=== PATIENT | female | born 1950 | race American Indian/Alaskan Native ===

== ENCOUNTER 2019-09-17 08:08 | Observation (INO) | payer MEDICARE ==
[2019-09-17] MEDS ORDERED: NITROGLYCERIN 0.4 MG TAB SUBL SL ONE (08:29)
[2019-09-17] MEDS ORDERED: ASPIRIN 325 MG TAB PO ONE (08:29)
[2019-09-17 08:51] LABS: Basophils # (Auto) 0.1 K/mm3 (0.0-0.1); Basophils % (Auto) 1.5 % (0.0-1.8); Eosinophils # (Auto) 0.1 K/mm3 (0.0-0.4); Eosinophils % (Auto) 3.4 % (0.0-4.3); Hematocrit 38.3 % (30.3-42.9); Hemoglobin 13.6 gm/dl (10.1-14.3); Lymphocytes # (Auto) 1.4 K/mm3 (1.2-5.4); Lymphocytes % (Auto) 33.2 % (13.4-35.0); Mean Corpuscular HGB Conc 36 % (30-34); Mean Corpuscular Volume 96 fl (79-97); Monocytes # (Auto) 0.3 K/mm3 (0.0-0.8); Monocytes % (Auto) 6.7 % (0.0-7.3); Platelet Count 292 K/mm3 (140-440); Red Cell Distribution Width 13.7 % (13.2-15.2)
--- NOTE | 2019-09-17 08:57 | XRay Report ---
CHEST PA AND LATERAL VIEWS INDICATION: chest pain. COMPARISON: None. FINDINGS: Support devices: None. Heart: Within normal limits. Lungs/Pleura: No acute pulmonary or pleural findings. IMPRESSION: 1. No significant abnormality. Signer Name: Robert Ngo MD Signed: 09/17/2019 8:53 AM Workstation Name: [id number]
[2019-09-17 09:01] LABS: INR 0.95 (0.87-1.13)
[2019-09-17 09:02] LABS: Partial Thromboplastin Time 32.1 Sec. (24.2-36.6)
--- NOTE | 2019-09-17 09:05 | Emergency Department Report ---
ED General Adult HPI - General Chief complaint: Headache Stated complaint: HEAD PAIN Time Seen by Provider: 09/17/19 08:28 Source: patient, EMS Mode of arrival: Ambulatory Limitations: No Limitations - History of Present Illness Initial comments: Patient is a 69 y/o AA female who has a PMH of HTN and Hyperlipidemia who is presenting with [place]. Patient states that she woke up with an intense HE that she described as a burning senstation. patient states that she could walk and talk normally. There was associated nausea. Once paramedics were called she states that she began to have chest pain that was a burning/heavy pain that was 8/10 for several seconds and is now 5/10. She denied cough or fever Patient states that she felt new syncopal as well -: Sudden Location: chest Radiation: non-radiation Severity scale (0 -10): 3 Quality: burning Improves with: none Worsens with: none Associated Symptoms: chest pain, headaches, nausea/vomiting, shortness of breath. denies: confusion, cough, diaphoresis, fever/chills, loss of appetite, malaise, rash, seizure, syncope, weakness - Related Data Allergies Allergy/AdvReac Type Severity Reaction Status Date / Time Iybwugo-Psz-Duv Reductase Allergy Unknown Verified 09/17/19 09:31 Inhibitor albuterol AdvReac Shortness Verified 09/17/19 09:49 of Breath codeine AdvReac Nausea Verified 09/17/19 09:49 ED Review of Systems ROS: Stated complaint: HEAD PAIN Other details as noted in HPI Comment: All other systems reviewed and negative ED Past Medical Hx - Past Medical History Previous Medical History?: Yes Hx Hypertension: Yes - Social History Smoking Status: Never Smoker Substance Use Type: None ED Physical Exam - General Limitations: No Limitations General appearance: alert, in no apparent distress - Head Head exam: Present: atraumatic, normocephalic - Eye Eye exam: Present: normal appearance - ENT ENT exam: Present: mucous membranes moist - Neck Neck exam: Present: normal inspection - Respiratory Respiratory exam: Present: normal lung sounds bilaterally. Absent: respiratory distress, wheezes, rales, rhonchi - Cardiovascular Cardiovascular Exam: Present: regular rate, normal rhythm, normal heart sounds. Absent: systolic murmur, diastolic murmur, rubs, gallop - GI/Abdominal GI/Abdominal exam: Present: soft, normal bowel sounds. Absent: distended, tenderness, guarding, rebound - Extremities Exam Extremities exam: Present: normal inspection - Back Exam Back exam: Present: normal inspection - Neurological Exam Neurological exam: Present: alert, oriented X3, CN II-XII intact. Absent: motor sensory deficit - Psychiatric Psychiatric exam: Present: normal affect, normal mood - Skin Skin exam: Present: warm, dry, intact, normal color. Absent: rash ED Course Vital Signs 09/17/19 09/17/19 09/17/19 08:20 09:32 10:38 Temperature 98.4 F Pulse Rate 62 84 54 L Respiratory 16 12 Rate Blood Pressure 135/87 127/83 Blood Pressure 114/66 [Left] O2 Sat by Pulse 97 Oximetry ED Medical Decision Making - Lab Data Result diagrams: 09/17/19 08:30 09/17/19 08:30 Lab Results 09/17/19 09/17/19 09/17/19 Range/Units 08:30 08:30 08:30 WBC 4.3 L (4.5-11.0) K/mm3 RBC 4.00 (3.65-5.03) M/mm3 Hgb 13.6 (10.1-14.3) gm/dl Hct 38.3 (30.3-42.9) % MCV 96 (79-97) fl MCH 34 H (28-32) pg MCHC 36 H (30-34) % RDW 13.7 (13.2-15.2) % Plt Count 292 (140-440) K/mm3 Lymph % (Auto) 33.2 (13.4-35.0) % [place] % (Auto) 6.7 (0.0-7.3) % Eos % (Auto) 3.4 (0.0-4.3) % Baso % (Auto) 1.5 (0.0-1.8) % Lymph # 1.4 (1.2-5.4) K/mm3 [place] # 0.3 (0.0-0.8) K/mm3 Eos # 0.1 (0.0-0.4) K/mm3 Baso # 0.1 (0.0-0.1) K/mm3 Seg Neutrophils % 55.2 (40.0-70.0) % Seg Neutrophils # 2.4 (1.8-7.7) K/mm3 PT 12.6 (12.2-14.9) Sec. INR 0.95 (0.87-1.13) APTT 32.1 (24.2-36.6) Sec. D-Dimer 300.30 H (0-234) ng/mlDDU Sodium 142 (137-145) mmol/L Potassium 3.7 (3.6-5.0) mmol/L Chloride 104.4 (98-107) mmol/L Carbon Dioxide 25 (22-30) mmol/L Anion Gap 16 mmol/L BUN 11 (7-17) mg/dL Creatinine 1.0 (0.7-1.2) mg/dL Estimated GFR > 60 ml/min BUN/Creatinine Ratio 11 % Glucose 114 H (65-100) mg/dL Calcium 9.1 (8.4-10.2) mg/dL Total Bilirubin 0.30 (0.1-1.2) mg/dL AST 18 (5-40) units/L ALT 13 (7-56) units/L Alkaline Phosphatase 67 (35-129) units/L Troponin T < 0.010 (0.00-0.029) ng/mL Total Protein 7.4 (6.3-8.2) g/dL Albumin 4.1 (3.9-5) g/dL Albumin/Globulin Ratio 1.2 % Lipase 40 (13-60) units/L // Range/Units 11:26 WBC (4.5-11.0) K/mm3 RBC (3.65-5.03) M/mm3 Hgb (10.1-14.3) gm/dl Hct (30.3-42.9) % MCV (79-97) fl MCH (28-32) pg MCHC (30-34) % RDW (13.2-15.2) % Plt Count (140-440) K/mm3 Lymph % (Auto) (13.4-35.0) % [place] % (Auto) (0.0-7.3) % Eos % (Auto) (0.0-4.3) % Baso % (Auto) (0.0-1.8) % Lymph # (1.2-5.4) K/mm3 [place] # (0.0-0.8) K/mm3 Eos # (0.0-0.4) K/mm3 Baso # (0.0-0.1) K/mm3 Seg Neutrophils % (40.0-70.0) % Seg Neutrophils # (1.8-7.7) K/mm3 PT (12.2-14.9) Sec. INR (0.87-1.13) APTT (24.2-36.6) Sec. D-Dimer (0-234) ng/mlDDU Sodium (137-145) mmol/L Potassium (3.6-5.0) mmol/L Chloride (98-107) mmol/L Carbon Dioxide (22-30) mmol/L Anion Gap mmol/L BUN (7-17) mg/dL Creatinine (0.7-1.2) mg/dL Estimated GFR ml/min BUN/Creatinine Ratio % Glucose (65-100) mg/dL Calcium (8.4-10.2) mg/dL Total Bilirubin (0.1-1.2) mg/dL AST (5-40) units/L ALT (7-56) units/L Alkaline Phosphatase (35-129) units/L Troponin T < 0.010 (0.00-0.029) ng/mL Total Protein (6.3-8.2) g/dL Albumin (3.9-5) g/dL Albumin/Globulin Ratio % Lipase (13-60) units/L - EKG Data -: EKG Interpreted by Ia EKG shows normal: sinus rhythm, axis, intervals, QRS complexes, ST-T waves Rate: normal - EKG Data Interpretation: normal EKG - Radiology Data CT head/brain wo con INDICATION: severe headache. TECHNIQUE: Routine CT head without contrast. All CT scans at this location are performed using CT dose reduction for ALARA by means of automated exposure control. COMPARISON: None. FINDINGS: BRAIN / INTRACRANIAL CONTENTS: No acute hemorrhage, mass effect, midline shift, or hydrocephalus. No appreciable acute large territorial or lacunar infarct. Remote small volume infarct in the left superior cerebellar hemisphere. There is also mild developmental prominence of the cisterna magna. Otherwise normal ventricular and cisternal size for age. ORBITS: No significant abnormality of visualized orbits. SINUSES / MASTOIDS: No significant abnormality of visualized sinuses and mastoid air cells. ADDITIONAL FINDINGS: None. IMPRESSION: 1. No acute findings. 2. Remote/chronic left superior cerebellar hemisphere infarct. Signer Name: Paco Potter MD Signed: 09/17/2019 9:31 AM Workstation Name: [id number] CHEST PA AND LATERAL VIEWS INDICATION: chest pain. COMPARISON: None. FINDINGS: Support devices: None. Heart: Within normal limits. Lungs/Pleura: No acute pulmonary or pleural findings. IMPRESSION: 1. No significant abnormality. Signer Name: Robert Ngo MD Signed: 09/17/2019 8:53 AM Workstation Name: [id number] CTA CHEST WITH IV CONTRAST INDICATION: Chest pain, elevated d-dimer. TECHNIQUE: Axial CT images were obtained through the chest after injection of 100 mL Omnipaque 350 IV contrast. 3 plane MIP reconstructions were produced. All CT scans at this location are performed using CT dose reduction for ALARA by means of automated exposure control. COMPARISON: None available. FINDINGS: Pulmonary Arteries: No pulmonary emboli. There is mild dilation of the main pulmonary artery measuring 3.2 cm at the level of the pulmonary bifurcation, which can indicate underlying chronic pulmonary hypertension. Lungs: There is mild dependent atelectasis without significant consolidation, pleural effusion, or pneumothorax. Trachea and Bronchi: No significant abnormality. Heart and Pericardium: No significant abnormality. Vasculature: No significant abnormality. Lymphatics: No lymphadenopathy. Additional Findings: None. Upper Abdomen: No acute findings. Skeletal Structures: No significant osseous abnormality. IMPRESSION: 1. No CT evidence for pulmonary embolism. 2. No acute findings. 3. Mild ectasia of the main pulmonary artery which can indicate underlying pulmonary hypertension. Signer Name: Paco Potter MD Signed: 09/17/2019 10:28 AM Workstation Name: [id number] - Medical Decision Making Patient is a 69-year-old female with a history of hypertension and hyperlipidemia who is presenting with chest discomfort headache and near syncopal episode at home. The patient does not have a history of recent cardiac evaluation. Patient's chest discomfort did improve with nitroglycerin however it made her headache worse. Patient was given Tylenol and the patient at the time of disposition is pain free. The patient's been ruled out for acute CO, aortic dissection, pulmonary embolus. Because of the patient's age and risk factors patient will be admitted to the hospital in observation status. Critical care attestation.: If time is entered above; I have spent that time in minutes in the direct care o f this critically ill patient, excluding procedure time. ED Disposition Clinical Impression: Chest pain, Near syncope Disposition: DC-09 OP ADMIT IP TO THIS HOSP Is pt being admited?: Yes Does the pt Need Aspirin: No Condition: Stable Instructions: Chest Pain (ED) Referrals: PRIMARY CARE, [Referring] - 3-5 Days Time of Disposition: 12:57
[2019-09-17 09:08] LABS: Alanine Aminotransferase 13 units/L (7-56); Albumin 4.1 g/dL (3.9-5); BUN/Creatinine Ratio 11; Blood Urea Nitrogen 11 mg/dL (7-17); Calcium 9.1 mg/dL (8.4-10.2); Hemolysis Index 6
--- NOTE | 2019-09-17 09:35 | Cat Scan Report ---
CT head/brain wo con INDICATION: severe headache. TECHNIQUE: Routine CT head without contrast. All CT scans at this location are performed using CT dos e reduction for ALARA by means of automated exposure control. COMPARISON: None. FINDINGS: BRAIN / INTRACRANIAL CONTENTS: No acute hemorrhage, mass effect, midline shift, or hydrocephalus. No appreciable acute large territorial or lacunar infarct. Remote small volume infarct in the left super ior cerebellar hemisphere. There is also mild developmental prominence of the cisterna magna. Otherwi se normal ventricular and cisternal size for age. ORBITS: No significant abnormality of visualized orbits. SINUSES / MASTOIDS: No significant abnormality of visualized sinuses and mastoid air cells. ADDITIONAL FINDINGS: None. IMPRESSION: 1. No acute findings. 2. Remote/chronic left superior cerebellar hemisphere infarct. Signer Name: Paco Potter MD Signed: 09/17/2019 9:31 AM Workstation Name: [id number]
[2019-09-17] MEDS ORDERED: ACETAMINOPHEN 325 MG TAB PO ONE (09:37)
--- NOTE | 2019-09-17 10:33 | Cat Scan Report ---
CTA CHEST WITH IV CONTRAST INDICATION: Chest pain, elevated d-dimer. TECHNIQUE: Axial CT images were obtained through the chest after injection of 100 mL Omnipaque 350 IV contrast. 3 plane MIP reconstructions were produced. All CT scans at this location are performed using CT dose reduction for ALARA by means of automated exposure control. COMPARISON: None available. FINDINGS: Pulmonary Arteries: No pulmonary emboli. There is mild dilation of the main pulmonary artery measurin g 3.2 cm at the level of the pulmonary bifurcation, which can indicate underlying chronic pulmonary h ypertension. Lungs: There is mild dependent atelectasis without significant consolidation, pleural effusion, or pn eumothorax. Trachea and Bronchi: No significant abnormality. Heart and Pericardium: No significant abnormality. Vasculature: No significant abnormality. Lymphatics: No lymphadenopathy. Additional Findings: None. Upper Abdomen: No acute findings. Skeletal Structures: No significant osseous abnormality. IMPRESSION: 1. No CT evidence for pulmonary embolism. 2. No acute findings. 3. Mild ectasia of the main pulmonary artery which can indicate underlying pulmonary hypertension. Signer Name: Paco Potter MD Signed: 09/17/2019 10:28 AM Workstation Name: [id number]
[2019-09-17] MEDS ORDERED: MORPHINE 2 MG/1 ML INJ IV PRN (13:05)
--- NOTE | 2019-09-17 13:10 | History and Physical Report ---
History of Present Illness Date of examination: 09/17/19 Date of admission: 09/17/19 Chief complaint: chest pain History of present illness: The patient is a 69 YO female with a past medical history of HTN and HLP, PCP is at [facility] presented with c/o headache, chest pain and near syncope since this morning. She states that shw woke up in the morning with a severe left-sided headache. Shortly after she experienced a bout of midsternal aching chest pain which was associated with severe lightheadedness and nausea. She felt as though she was going to pass out. The episode lasted several minutes and then resolved. A similar episode occurred twice more and she decided to call EMS. The episodes did not seem to be related to positional changes. She denies any palpitations, vomiting, diaphoresis, dizziness or syncope. Her last stress test was approx 2 years ago via her PCP and was negative. Her symptoms have improved since arrival to ED. CE EKG were normal. CT head showed no acute issue. CXR showed no infiltrates. She will be admitted for further evaluation and mx. Past History Past Medical History: hypertension, hyperlipidemia Past Surgical History: Partial hysterectomy, tubal ligation Family History: Mother and brother has h/o Heart disease Social history: denies: smoking, alcohol abuse, prescription drug abuse Review of System: Constitutional: no fever, no chills, no weight loss Ears, eyes, nose, mouth and throat: no nasal congestion, no nasal discharge, no sinus pressure, no vision change, no red eye. Neck: No neck pain or rigidity. Cardiovascular: + chest pain, no orthopnea, no palpitations, no leg swelling Respiratory: No shortness of breath, no cough, no congestion, no wheezing Gastrointestinal: no abdominal pain, + nausea, no vomiting Genitourinary : no dysuria, no hematuria Musculoskeletal: no joint swelling or muscle ache Integumentary: no rash, no pruritis Neurological: no parathesias, no numbness, no tingling Endocrine: no cold or heat intolerance, no polyuria or polydipsia Hematologic/Lymphatic: no easy bruising, no easy bleeding, no gland swelling Allergic/Immunologic: no urticaria, no angioedema. Medications and Allergies Allergies Allergy/AdvReac Type Severity Reaction Status Date / Time Bioqjsm-Aue-Lta Reductase Allergy Unknown Verified 09/17/19 09:31 Inhibitor albuterol AdvReac Shortness Verified 09/17/19 09:49 of Breath codeine AdvReac Nausea Verified 09/17/19 09:49 Active Meds: Active Medications Enoxaparin Sodium (Enoxaparin) 40 mg SUB-Q QDAY QUIQUE Morphine Sulfate (Morphine) 2 mg IV Q5MIN PRN PRN Reason: Chest Pain unrelieved by NTG Pantoprazole Sodium (Protonix) 40 mg PO QDAY QUIQUE Sodium Chloride (Sodium Chloride Flush Syringe 10 Ml) 10 ml IV PRN PRN PRN Reason: LINE FLUSH Exam - Physical Exam Narrative exam: GENERAL: well-developed and well-nourished elderly AAF lying on bed appeared to be in no discomfort. HEENT: Normocephalic. Atraumatic. No conjunctival congestion or icterus. Patient has moist mucous membranes. NECK: Supple. Trachea midline. CHEST/LUNGS: Clear to auscultated bilaterally, breathing nonlabored. No wheezes crackles or rhonchi. HEART/CARDIOVASCULAR: Regular in rate and rhythm. S1 and S2 positive. ABDOMEN: Abdomen is soft, nontender. Patient has normal bowel sounds. SKIN: There is no rash. Warm and dry. NEURO: No focal motor deficit. Follows command. MUSCULOSKELETAL: No joint effusion or tenderness. EXTRIMITY: No edema, no cyanosis or clubbing. PSYCH: Cooperative. - Constitutional Vitals: Temp Pulse Resp BP Pulse Ox 98.4 F 54 L 12 114/66 97 09/17/19 08:20 09/17/19 10:38 09/17/19 10:38 09/17/19 10:38 09/17/19 08:20 Results - Labs CBC & Chem 7: 09/17/19 14:40 09/17/19 14:40 Labs: Abnormal lab results 09/17/19 09/17/19 09/17/19 Range/Units 08:30 08:30 08:30 WBC 4.3 L (4.5-11.0) K/mm3 MCH 34 H (28-32) pg MCHC 36 H (30-34) % D-Dimer 300.30 H (0-234) ng/mlDDU Glucose 114 H (65-100) mg/dL Assessment and Plan Chest pain - - will admit to telemetry bed - monitor with serial CE and EKG - will place on Aspirin, no statin as she is allergic to statin - as needed SL NTG and iv morphin for pain - Monitor BP, add betablocker and ACEI if BP tolerates - order 2D echo and stress test in the am - cardiac diet now, NPO after midnight - provide DVT Px with lovenox Near syncope, CT head negative - supportive care, PT eval Headache, now resolved, no acute finding on CT head Hypokalemia, continue to replete and monitor HTN, continue to monitor BP, resume home meds HLD, continue statin DVT prophylaxis, Lovenox Radiological data: CTA chest: 1. No CT evidence for pulmonary embolism. 2. No acute findings. 3. Mild ectasia of the main pulmonary artery which can indicate underlying pulmonary hypertension. CT head without contrast: 1. No acute findings. 2. Remote/chronic left superior cerebellar hemisphere infarct. Chest x-ray: 1. No significant abnormality.
[2019-09-17 15:12] LABS: Basophils # (Auto) 0.1 K/mm3 (0.0-0.1); Basophils % (Auto) 1.4 % (0.0-1.8); Eosinophils # (Auto) 0.1 K/mm3 (0.0-0.4); Eosinophils % (Auto) 2.5 % (0.0-4.3); Hematocrit 39.4 % (30.3-42.9); Lymphocytes # (Auto) 2.1 K/mm3 (1.2-5.4); Lymphocytes % (Auto) 47.9 % (13.4-35.0); Mean Corpuscular HGB Conc 33 % (30-34); Mean Corpuscular Volume 98 fl (79-97); Monocytes # (Auto) 0.3 K/mm3 (0.0-0.8); Platelet Count 280 K/mm3 (140-440); Red Blood Count 4.03 M/mm3 (3.65-5.03); Red Cell Distribution Width 13.5 % (13.2-15.2)
[2019-09-17 15:14] LABS: Calcium 8.6 mg/dL (8.4-10.2)
--- NOTE | 2019-09-17 15:20 | Consultation ---
History of Present Illness Consult date: 09/17/19 Requesting physician: REJI NEGRO Consult reason: chest pain History of present illness: The patient is a 69 YO female with a past medical history of HTN and HLP. She is previously unknown to our practice. Her PCP is at [facility]. She presented with c/o headache, chest pain and near syncope since this morning. She states that a severe left-sided headache awoke her from sleep this morning. Shortly after waking up, she experienced a bout of midsternal aching chest pain which was associated with severe lightheadedness and nausea. She was standing up when the episode occurred. She felt as though she was going to pass out. The episode lasted several minutes and then resolved. A similar episode occurred twice more and she decided to call EMS. The episodes did not seem to be related to positional changes. She denies any palpitations, vomiting, diaphoresis, dizziness or syncope. She denies any known prior cardiac issues. She walks 3-4 miles most days of the week for exercise and she denies any recent exercise intolerance. Her last stress test was approx 2 years ago via her PCP and was negative. Her symptoms have improved since arrival to ED. Past History Past Medical History: hypertension, hyperlipidemia Past Surgical History: hysterectomy Social history: denies: smoking, alcohol abuse, prescription drug abuse Medications and Allergies Allergies Allergy/AdvReac Type Severity Reaction Status Date / Time Vqhojfk-Gsa-Hye Reductase Allergy Unknown Verified 09/17/19 09:31 Inhibitor albuterol AdvReac Shortness Verified 09/17/19 09:49 of Breath codeine AdvReac Nausea Verified 09/17/19 09:49 Active Meds: Active Medications Atorvastatin Calcium (Lipitor) 40 mg PO QHS QUIQUE Enoxaparin Sodium (Enoxaparin) 40 mg SUB-Q QDAY QUIQUE Morphine Sulfate (Morphine) 2 mg IV Q5MIN PRN PRN Reason: Chest Pain unrelieved by NTG Pantoprazole Sodium (Protonix) 40 mg PO QDAY QUIQUE Sodium Chloride (Sodium Chloride Flush Syringe 10 Ml) 10 ml IV PRN PRN PRN Reason: LINE FLUSH Review of Systems Constitutional: no weight loss, no weight gain, no fever, no chills, no sweats Ears, nose, mouth and throat: no ear pain, no nose pain, no sinus pressure, no sinus pain Cardiovascular: chest pain, lightheadedness, high blood pressure, no orthopnea, no palpitations, no rapid/irregular heart beat, no edema, no syncope, no shortness of breath, no dyspnea on exertion Respiratory: no cough, no shortness of breath, no dyspnea on exertion, no congestion, no wheezing, no pain on inspiration Gastrointestinal: nausea, no abdominal pain, no vomiting, no diarrhea, no constipation, no change in bowel habits Genitourinary Female: no pelvic pain, no flank pain, no dysuria, no urinary frequency, no urgency Musculoskeletal: no neck stiffness, no neck pain, no shooting arm pain, no arm numbness/tingling, no low back pain, no shooting leg pain Integumentary: no rash, no pruritis, no redness, no sores, no wounds Neurological: headaches, no head injury, no paralysis, no weakness, no parathesias, no numbness, no tingling, no seizures, no syncope, no lack of coordination, no change in speech, no change in mentation, no balance difficulties Psychiatric: no anxiety Endocrine: no cold intolerance, no heat intolerance Hematologic/Lymphatic: no easy bruising, no easy bleeding Allergic/Immunologic: no urticaria, no wheezing Physical Examination Vital Signs Temp Pulse Resp BP Pulse Ox 98.4 F 62 16 135/87 97 09/17/19 08:20 09/17/19 08:20 09/17/19 08:20 09/17/19 08:20 09/17/19 08:20 General appearance: no acute distress HEENT: Positive: PERRL, Normocephaly, Mucus Membranes Moist Neck: Positive: neck supple, trachea midline Cardiac: Positive: Reg Rate and Rhythm, S1/S2 Lungs: Positive: clear to auscultation Neuro: Positive: Grossly Intact Abdomen: Negative: Tender Skin: Negative: Rash Musculoskeletal: No Pain Extremities: Absent: edema Results 09/17/19 14:40 09/17/19 14:40 Cardiac Enzymes 09/17/19 Range/Units 08:30 AST 18 (5-40) units/L Coagulation 09/17/19 Range/Units 08:30 PT 12.6 (12.2-14.9) Sec. INR 0.95 (0.87-1.13) APTT 32.1 (24.2-36.6) Sec. CBC 09/17/19 09/17/19 Range/Units 08:30 14:40 WBC 4.3 L 4.3 L (4.5-11.0) K/mm3 RBC 4.00 4.03 (3.65-5.03) M/mm3 Hgb 13.6 13.0 (10.1-14.3) gm/dl Hct 38.3 39.4 (30.3-42.9) % Plt Count 292 280 (140-440) K/mm3 Lymph # 1.4 2.1 (1.2-5.4) K/mm3 [place] # 0.3 0.3 (0.0-0.8) K/mm3 Eos # 0.1 0.1 (0.0-0.4) K/mm3 Baso # 0.1 0.1 (0.0-0.1) K/mm3 Comprehensive Metabolic Panel 09/17/19 09/17/19 Range/Units 08:30 14:40 Sodium 142 139 (137-145) mmol/L Potassium 3.7 3.4 L (3.6-5.0) mmol/L Chloride 104.4 103.9 (98-107) mmol/L Carbon Dioxide 25 21 L (22-30) mmol/L BUN 11 9 (7-17) mg/dL Creatinine 1.0 1.1 (0.7-1.2) mg/dL Glucose 114 H 110 H (65-100) mg/dL Calcium 9.1 8.6 (8.4-10.2) mg/dL AST 18 (5-40) units/L ALT 13 (7-56) units/L Alkaline Phosphatase 67 (35-129) units/L Total Protein 7.4 (6.3-8.2) g/dL Albumin 4.1 (3.9-5) g/dL - Imaging and Cardiology Echo: pending EKG: report reviewed, image reviewed EKG interpretations - Telemetry EKG Rhythm: Sinus Rhythm - EKG Sinus rhythms and dysrhythmias: sinus rhythm Assessment and Plan Head CT with NAF. Chest CTA with NAF. AMI ruled out. Chest pain currently resolved. Obtain echo. Plan for lexiscan MPI stress test in AM. NPO after MN. The patient has been seen in conjunction with Dr. Blum who agrees with the assessment and plan of care. - Patient Problems (1) Chest pain Current Visit: Yes Status: Acute (2) Near syncope Current Visit: Yes Status: Acute (3) Headache Current Visit: Yes Status: Acute (4) HTN (hypertension) Current Visit: Yes Status: Chronic (5) Hyperlipidemia Current Visit: Yes Status: Chronic
[2019-09-17] MEDS ORDERED: hydrALAZINE 20 MG/1 ML INJ IV PRN (18:17)
[2019-09-17] MEDS ORDERED: ONDANSETRON 4 MG/2 ML INJ IV PRN (18:17)
[2019-09-17] MEDS ORDERED: HYDROcodone/ACETAMINOPHEN 5-325 MG TAB PO PRN (18:17)
[2019-09-17] MEDS ORDERED: ACETAMINOPHEN 325 MG TAB PO PRN (18:17)
[2019-09-17] MEDS ORDERED: POTASSIUM CHLORIDE ER 20 MEQ TAB PO ONE (21:00)
[2019-09-18] MEDS ORDERED: REGADENOSON 0.4 MG/5 ML INJ IV ONE (07:20)
--- NOTE | 2019-09-18 09:16 | Treadmill Report ---
LEXISCAN STRESS TEST REPORT REASON FOR STUDY: Chest pain. STRESS TEST PROTOCOL: The patient received 0.4 mg of Lexiscan intravenously over 10 seconds. Tc-99m Tetrofosmin was subsequently injected. Baseline ECG, sinus bradycardia. Lexiscan ECG, no ischemic changes. No chest pain. No arrhythmias. IMPRESSION: Electrocardiographically negative stress test. Nuclear imaging report to follow. JOB# [id number] CHASE/NTS
[2019-09-18] MEDS ORDERED: ASPIRIN 81 MG TAB CHEW PO SCH (10:00)
[2019-09-18] MEDS ORDERED: ENOXAPARIN 60 MG/0.6 ML INJ SUB-Q SCH (10:00)
[2019-09-18] MEDS ORDERED: PANTOPRAZOLE 40 MG TAB PO SCH (10:00)
--- NOTE | 2019-09-18 11:02 | Progress Note ---
Assessment and Plan S/p lexiscan MPI stress this AM which was normal. Echo reviewed - EF 55-60%, mild MR, mild to mod MR. Currently stable cardiac status. Pt may discharge home from cardiology standpoint. Recommend follow up in our office with Dr. Blum within 1-2 weeks ([phone]). The patient has been seen in conjunction with Dr. Blum who agrees with the assessment and plan of care. - Patient Problems (1) Chest pain Current Visit: Yes Status: Resolved (2) Near syncope Current Visit: Yes Status: Acute (3) Headache Current Visit: Yes Status: Resolved (4) HTN (hypertension) Current Visit: Yes Status: Chronic (5) Hyperlipidemia Current Visit: Yes Status: Chronic Subjective Date of service: 09/18/19 Principal diagnosis: cp; headache; near syncope Interval history: pt for stress test, feeling better today. in SR, no acute events on telemetry overnight. Objective Last Vital Signs Temp 97.9 F 09/18/19 02:03 Pulse 58 L 09/17/19 21:00 Resp 20 09/18/19 02:03 BP 123/77 09/18/19 08:53 Pulse Ox 100 09/17/19 21:00 - Physical Examination General: No Apparent Distress HEENT: Positive: PERRL, Normocephaly, Mucus Membranes Moist Neck: Positive: neck supple, trachea midline Cardiac: Positive: Reg Rate and Rhythm, S1/S2 Lungs: Positive: Decreased Breath Sounds Neuro: Positive: Grossly Intact Abdomen: Negative: Tender Skin: Negative: Rash Musculoskeletal: No Pain Extremities: Absent: edema - Labs and Meds CBC 09/17/19 Range/Units 14:40 WBC 4.3 L (4.5-11.0) K/mm3 RBC 4.03 (3.65-5.03) M/mm3 Hgb 13.0 (10.1-14.3) gm/dl Hct 39.4 (30.3-42.9) % Plt Count 280 (140-440) K/mm3 Lymph # 2.1 (1.2-5.4) K/mm3 Luna # 0.3 (0.0-0.8) K/mm3 Eos # 0.1 (0.0-0.4) K/mm3 Baso # 0.1 (0.0-0.1) K/mm3 Comprehensive Metabolic Panel 11/19/19 Range/Units 14:40 Sodium 139 (137-145) mmol/L Potassium 3.4 L (3.6-5.0) mmol/L Chloride 103.9 (98-107) mmol/L Carbon Dioxide 21 L (22-30) mmol/L BUN 9 (7-17) mg/dL Creatinine 1.1 (0.7-1.2) mg/dL Glucose 110 H (65-100) mg/dL Calcium 8.6 (8.4-10.2) mg/dL - Imaging and Cardiology EKG: report reviewed, image reviewed Echo: pending - EKG Sinus rhythms and dysrhythmias: sinus rhythm
--- NOTE | 2019-09-18 13:00 | Treadmill Report ---
THALLIUM REPORT REASON FOR STUDY: Chest pain. NUCLEAR IMAGING RESULTS: Normal left ventricular cavity size with no change from stress to rest. Distribution of radionuclide within the left ventricle revealed normal myocardial photon uptake with stress and rest imaging. Gated SPECT imaging revealed normal global LV systolic function with no significant wall motion abnormalities. The calculated left ventricular ejection fraction is 70%. IMPRESSION: Normal stress and rest myocardial perfusion imaging. Normal global LV systolic function with no significant wall motion abnormalities. Ejection fraction 70%. No evidence of significant stress-induced ischemia or prior infarction. JOB# [id number] CHASE/BENITO MTDD
[2019-09-18 14:09] LABS: BUN/Creatinine Ratio 10; Blood Urea Nitrogen 9 mg/dL (7-17); Calcium 8.7 mg/dL (8.4-10.2); Hemolysis Index 40
[2019-09-18 14:41] VITALS: BP 144/94
--- NOTE | 2019-09-18 16:05 | Discharge Summary ---
Providers - Providers Date of Admission: 09/17/19 12:58 Date of discharge: 09/18/19 Attending physician: CHARLES GROVER 09/17/19 Consult to Cardiac Rehabilitation [CONS] Routine Reason For Exam: Phase I 09/17/19 13:05 Consult to Cardiology [CONS] Routine Consulting Provider: MALIA FREDERICK Reason For Exam: chest pain Primary care physician: BRODY ZUNIGA MD Hospitalization Reason for admission: Acute Chest pain, r/o ACS, Elevated d-dimer, Hypokalemia Condition: Stable Pertinent studies: Echo: EF of 55-60% CTA chest: neg for PE Hospital course: Final discharge diagnosis: Acute Chest pain, exact cause unknown Elevated d-dimer, CTA chest neg for PE Near syncope Headache, head CT scan neg Hypokalemia, repleted and resolved HTN HLD Hospital course: pt was admitted and placed on chest pain pathway. Serial troponin levels done were neg. She later underwent stress test which was reported as neg. At discharge, she was chest pain free. Disposition: - TO HOME OR SELFCARE Time spent for discharge: 30 minutes Core Measure Documentation - Palliative Care Palliative Care/ Comfort Measures: Not Applicable - Core Measures Any of the following diagnoses?: none Exam - Constitutional Vitals: Temp Pulse Resp BP Pulse Ox 98.4 F 69 18 144/94 99 09/18/19 13:29 09/18/19 13:29 09/18/19 13:29 09/18/19 13:29 09/18/19 13:29 General appearance: Present: no acute distress, well-nourished - EENT Eyes: Present: PERRL, EOM intact ENT: hearing intact, clear oral mucosa - Neck Neck: Present: supple, normal ROM - Respiratory Respiratory effort: normal Respiratory: bilateral: CTA - Cardiovascular Rhythm: regular Heart Sounds: Present: S1 & S2. Absent: rub, click - Extremities Extremities: No edema Peripheral Pulses: within normal limits - Abdominal General gastrointestinal: Present: soft, non-tender, non-distended, normal bowel sounds - Integumentary Integumentary: Present: clear, warm, dry - Musculoskeletal Musculoskeletal: gait normal, strength equal bilaterally - Psychiatric Psychiatric: appropriate mood/affect, intact judgment & insight - Neurologic Neurologic: CNII-XII intact, moves all extremities Plan Follow up with: PRIMARY CARE, [Referring] - 3-5 Days
[2019-09-19] MEDS ORDERED: ENOXAPARIN 40 MG/0.4 ML INJ SUB-Q SCH (10:00)
== END 2019-09-18 18:00 | disposition home or self-care (01) ==
LOC: ED 08:08 → 4A 12:58 → 2B-ACE 14:03
PROVIDERS: ADMIT Internal Medicine; ATTEND Internal Medicine
DX: R07.89 Other chest pain (principal); R55 Syncope and collapse; E87.6 Hypokalemia; I10 Essential (primary) hypertension; E78.5 Hyperlipidemia, unspecified; R51 Headache; Z90.710 Acquired absence of both cervix and uterus; Z98.51 Tubal ligation status
CPT/HCPCS: 36415; 70450; 71046; 71275; 78452; 80048; 80053; 83690; 83735; 84484; 85025; 85379; 85610; 85730; 93005; 93010; 93017; 93306; 96372; 99284; A9502; G0378; J1650; J2785; Q9967

== ENCOUNTER 2019-10-19 19:22 | Emergency (ER) | payer MEDICARE ==
--- NOTE | 2019-10-19 20:09 | Emergency Department Report ---
ED Chest Pain HPI - General Chief Complaint: Chest Pain Stated Complaint: CHEST PAIN Time Seen by Provider: 10/19/19 19:35 Source: EMS Mode of arrival: Stretcher Limitations: No Limitations - History of Present Illness Initial Comments: 69-year-old female presents to the emergency department via EMS from home with complaint of some midsternal, nonradiating chest pain/pressure. This woke her up the last 2 mornings. The symptoms are intermittent. She was given a sublingual nitroglycerin and a full dose aspirin in route and says that it is feeling improved at this time. She denies any fever, nausea, vomiting, back pain, lower extremity swelling but does say that she has some intermittent shortness of breath and palpitations. The patient was here in mid to late August for similar complaints and had a negative stress test at that time. She denies any tobacco or illicit drug use. She has a new primary care physician and cannot currently remember the name. She does not have a creative producer. No recent travel or sick contacts at home. Severity scale (0 -10): 2 - Related Data Home Medications Medication Instructions Recorded Confirmed Last Taken amLODIPine 10 mg PO HS 09/18/19 09/18/19 09/16/19 22:00 Allergies Allergy/AdvReac Type Severity Reaction Status Date / Time [id number]-[id number] Reductase Allergy Unknown Verified 09/17/19 09:31 Inhibitor albuterol AdvReac Shortness Verified 09/17/19 09:49 of Breath codeine AdvReac Nausea Verified 09/17/19 09:49 Heart Score - HEART Score History: Slightly suspicious EKG: Normal Age: > 65 Risk factors: 1-2 risk factors Troponin: < normal limit HEART Score: 3 ED Review of Systems ROS: Stated complaint: CHEST PAIN Other details as noted in HPI Comment: All other systems reviewed and negative Constitutional: denies: chills, fever Eyes: denies: eye pain, vision change ENT: denies: ear pain, throat pain Respiratory: shortness of breath. denies: cough Cardiovascular: chest pain, palpitations Gastrointestinal: denies: abdominal pain, vomiting Genitourinary: denies: dysuria, discharge Musculoskeletal: denies: back pain, arthralgia Skin: denies: rash, lesions Neurological: denies: headache, weakness ED Past Medical Hx - Past Medical History Previous Medical History?: Yes Hx Hypertension: Yes Hx Arthritis: Yes (hands and hips) - Surgical History Past Surgical History?: Yes Additional Surgical History: hysterectomy x 2 - Social History Smoking Status: Never Smoker Substance Use Type: None - Medications Home Medications: Home Medications Medication Instructions Recorded Confirmed Last Taken Type amLODIPine 10 mg PO HS 09/18/19 09/18/19 09/16/19 22:00 History ED Physical Exam - General Limitations: No Limitations - Other Other exam information: GENERAL: The patient is well-developed well-nourished. HEENT: Normocephalic. Atraumatic. Patient has moist mucous membranes. EYES: Extraocular motions are intact. NECK: Supple. Trachea is midline. CHEST/LUNGS: Clear to auscultation. There is no respiratory distress noted. HEART/CARDIOVASCULAR: Regular. There is no tachycardia. There is no gallop rub or murmur. ABDOMEN: Abdomen is soft, nontender. Patient has normal bowel sounds. There is no abdominal distention. SKIN: Skin is warm and dry. NEURO: The patient is awake, alert, and oriented. The patient is cooperative. The patient has no focal neurologic deficits. The patient has normal speech. MUSCULOSKELETAL: There is no tenderness or deformity.There is no evidence of acute injury. ED Course Vital Signs 10/19/19 10/19/19 10/19/19 19:43 21:00 22:00 Temperature 98.4 F Pulse Rate 61 53 L 71 Respiratory 16 10 L 17 Rate Blood Pressure 130/81 135/88 139/81 Blood Pressure 130/81 [Left] O2 Sat by Pulse 98 98 99 Oximetry 10/19/19 10/20/19 23:00 00:51 Temperature 98.6 F Pulse Rate 57 L 64 Respiratory 21 16 Rate Blood Pressure 142/84 Blood Pressure 143/92 [Left] O2 Sat by Pulse 97 98 Oximetry LEONARDO score - Leonardo Score Age > 65: (1) Yes Aspirin use within the Past 7 Days: (1) Yes 3 or more CAD Risk Factors: (0) No 2 or more Angina events in past 24 hrs: (1) Yes Known CAD with more than 50% Stenosis: (0) No Elevated Cardiac Markers: (0) No ST Deviation Greater than 0.5mm: (0) No LEONARDO Score: 3 ED Medical Decision Making - Lab Data Result diagrams: 10/19/19 20:01 10/19/19 20:01 - EKG Data -: EKG Interpreted by Me EKG shows normal: sinus rhythm, axis, intervals, QRS complexes, ST-T waves Rate: normal - EKG Data When compared to previous EKG there are: no significant change Interpretation: normal EKG, unchanged when compared t (09/17/19) - Radiology Data Radiology results: image reviewed interpreted by me: Chest x-ray does not show any pleural effusions, pneumonia, focal consolidation, pneumothorax, or any other acute process. - Medical Decision Making This patient presents to the emergency department with complaint of some intermittent chest pressure and shortness of breath. The patient was just here in mid to late August for similar symptoms in which she had a negative workup including a negative stress test. Patient's EKG was normal without ST elevation SC, ischemia or dysrhythmia. Her labs were unremarkable as well including negative troponins 2 and a negative d-dimer. Her vital signs were stable throughout ED course. She was reevaluated multiple times over multiple hours and says she is feeling greatly improved. With the previous negative stress test and her negative workup this evening, there is low suspicion for any coronary artery disease or obstructive coronary lesions. The patient has good follow-up with her primary care physician and a scheduled appointment this coming Monday, in 2 days. She will also be given a referral for [facility] cardiology. In the meantime, the patient will return to the emergency Department with any worsening of her symptoms or any acute distress. - Differential Diagnosis SC, PE, costochondritis, GERD, pneumonia Critical Care Time: No Critical care attestation.: If time is entered above; I have spent that time in minutes in the direct care of this critically ill patient, excluding procedure time. ED Disposition Clinical Impression: Palpitations Chest pain Qualifiers: Chest pain type: unspecified Qualified Code(s): R07.9 - Chest pain, unspecified Disposition: - TO HOME OR SELFCARE Is pt being admited?: No Condition: Stable Instructions: Chest Pain (ED), Palpitations (ED) Additional Instructions: Please follow-up with your primary care physician on Monday as previously scheduled. I have also given you a referral for a local creative producer, Dr Gill, to follow up regarding your chest pains and palpitations. Return to the emergency Department with any worsening of your symptoms or any acute dist ress. Referrals: PRIMARY CARE, [Primary Care Provider] - 2-3 Days MARLEN GILL MD [Staff Physician] - 2-3 Days Time of Disposition: 00:37
--- NOTE | 2019-10-19 20:20 | XRay Report ---
CHEST 1 VIEW INDICATION: MAIN: CP FROM THIS MORNING. COMPARISON: 09/17/2019. FINDINGS: Support devices: None. Heart: Mild cardiomegaly. Lungs/Pleura: No acute air space or interstitial disease. Additional findings: None. IMPRESSION: No acute abnormality. Signer Name: Uday Abad MD Signed: 10/19/2019 8:16 PM Workstation Name: [id number]
[2019-10-19 20:22] LABS: Hematocrit 36.7 % (30.3-42.9); Hemoglobin 12.3 gm/dl (10.1-14.3); Mean Corpuscular HGB Conc 34 % (30-34); Mean Corpuscular Volume 97 fl (79-97); Platelet Count 293 K/mm3 (140-440); Red Cell Distribution Width 14.1 % (13.2-15.2)
[2019-10-19 20:34] LABS: BUN/Creatinine Ratio 16; Blood Urea Nitrogen 14 mg/dL (7-17); Calcium 8.8 mg/dL (8.4-10.2); Hemolysis Index 3
[2019-10-19] MEDS ORDERED: POTASSIUM CHLORIDE ER 20 MEQ TAB PO ONE (20:42)
[2019-10-19 21:31] LABS: Total Cells Counted 100
[2019-10-19 21:32] LABS: Large Platelets 1+; Platelet Estimate Cons; RBC Morphology Normal
[2019-10-20 00:51] VITALS: BP 143/92
== END 2019-10-20 00:54 | disposition home or self-care (01) ==
LOC: ED 19:22
DX: R00.2 Palpitations (principal); R07.89 Other chest pain; I10 Essential (primary) hypertension; M19.90 Unspecified osteoarthritis, unspecified site; Z90.710 Acquired absence of both cervix and uterus; Z79.899 Other long term (current) drug therapy; Z88.4 Allergy status to anesthetic agent; Z88.8 Allergy status to other drugs, medicaments and biological substances
CPT/HCPCS: 36415; 71045; 80048; 84443; 84484; 85007; 85025; 85379; 93005; 93010